=== PATIENT | female | born 2005 | race Caucasian/White ===

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

== ENCOUNTER 2023-08-13 05:17 | Inpatient (IN) | payer MEDICAID ==
[2023-08-13] MEDS ORDERED: Sodium Chloride 0.9% 10 ML Syringe FLUSH PRN (05:25)
[2023-08-13] MEDS ORDERED: Sodium Chloride 0.9% 2.5 ML Syringe FLUSH PRN (05:25)
[2023-08-13] MEDS ORDERED: Sodium Chloride 0.9% 20 ML SDV IV PRN (05:25)
[2023-08-13] MEDS ORDERED: Citric Acid/Sodium Citrate Solution 30 ML Cup PO ONE (05:25)
[2023-08-13] MEDS ORDERED: ceFAZolin 1 GM in Sodium Chloride 0.9% 50 ML IV ONE (05:25)
[2023-08-13] MEDS ORDERED: Oxytocin/0.9 % Sodium Chloride 30 UNIT/500 ML BAG IV SCH (05:30)
[2023-08-13] MEDS: Lactated Ringers 1,000 ML IV SCH ×2 (05:54→06:58)
[2023-08-13 06:39] LABS: HEMATOCRIT 39.2 % (37.0-47.0); HEMOGLOBIN 13.5 g/dL (12.0-16.0); MEAN CORPUSCULAR HEMOGLOBIN 29.5 pg (28.0-32.0); MEAN CORPUSCULAR HGB CONC 34.4 g/dL (32.0-36.0); MEAN CORPUSCULAR VOLUME 85.6 fL (83.0-99.0); MEAN PLATELET VOLUME 11.7 fL (9.4-12.3); PLATELET COUNT,PLT 135 K/uL (150-400); RED BLOOD CELL COUNT 4.58 M/uL (4.10-5.30); WHITE BLOOD CELL COUNT,WBC 10.11 K/uL (3.9-11.3)
[2023-08-13] MEDS ORDERED: Ketorolac 30 MG/ML SDV ONE (06:59)
[2023-08-13] MEDS ORDERED: Oxytocin 10 Units/1 ML SDV ONE (06:59)
[2023-08-13] MEDS ORDERED: Dexamethasone 4 MG/ML 5 ML MDV ONE (06:59)
[2023-08-13] MEDS ORDERED: Ropivacaine 0.5% 5 MG/ML 30 ML SDV ONE (06:59)
[2023-08-13] MEDS ORDERED: dexmedeTOMIDine HCl 200 MCG/2 ML SDV ONE (06:59)
[2023-08-13] MEDS ORDERED: Phenylephrine 1% 10 MG/ML SDV ONE (06:59)
[2023-08-13] MEDS ORDERED: ceFAZolin 1 GM Vial ONE (06:59)
[2023-08-13] MEDS ORDERED: Water For Injection, Sterile 20 ML ONE (06:59)
[2023-08-13] MEDS ORDERED: Morphine PF 10 MG/10 ML SDV ONE (07:01)
[2023-08-13] MEDS ORDERED: fentaNYL 100 MCG/2 ML SDV ONE (07:01)
[2023-08-13] MEDS ORDERED: Ondansetron 4 MG/2 ML SDV ONE (07:08)
[2023-08-13] MEDS ORDERED: Naloxone 0.4 MG/ML SDV IVPUSH PRN (07:43)
[2023-08-13] MEDS ORDERED: Ondansetron 4 MG/2 ML SDV IVPUSH PRN ×2 (07:43→09:11)
[2023-08-13] MEDS ORDERED: Albuterol 0.083% 2.5 MG/3 ML Neb Soln NEB PRN (07:43)
[2023-08-13] MEDS ORDERED: HYDROmorphone 1 MG/ML Syringe IVPUSH PRN (07:43)
[2023-08-13] MEDS ORDERED: fentaNYL 50 MCG/ML SDV IVPUSH PRN (07:43)
[2023-08-13] MEDS ORDERED: Morphine 2 MG/ML SYRINGE IVPUSH PRN (07:43)
[2023-08-13] MEDS ORDERED: ePHEDrine 50 MG/ML SDV IVPUSH PRN (07:43)
[2023-08-13] MEDS ORDERED: droPERidol 5 MG/2 ML SDV IVPUSH PRN (07:43)
[2023-08-13] MEDS ORDERED: Metoclopramide 10 MG/2 ML SDV IVPUSH PRN (07:43)
[2023-08-13] MEDS ORDERED: ePHEDrine 50 MG/ML SDV ONE (08:04)
[2023-08-13] MEDS ORDERED: Propofol 200 MG/20 ML SDV ONE (08:28)
[2023-08-13] MEDS ORDERED: Methylergonovine 0.2 MG/1 ML Amp IM PRN (09:11)
[2023-08-13] MEDS ORDERED: diphenhydrAMINE 50 MG/ML SDV IVPUSH PRN (09:11)
[2023-08-13] MEDS ORDERED: Acetaminophen/oxyCODONE 325-5 MG Tab PO PRN ×2 (09:11)
[2023-08-13] MEDS ORDERED: Bisacodyl 10 MG Supp RECTAL PRN (09:11)
[2023-08-13] MEDS ORDERED: Misoprostol 200 MCG Tab RECTAL PRN (09:11)
[2023-08-13] MEDS ORDERED: Oxytocin 10 Units/1 ML SDV IM PRN (09:11)
[2023-08-13] MEDS ORDERED: Lanolin 100% Cream 7 GM Tube TOP PRN (09:11)
[2023-08-13] MEDS ORDERED: Lactated Ringers 1,000 ML IV SCH (09:15)
[2023-08-13 09:38] LABS: PH,UMBILICAL VENOUS 7.36 (7.25-7.45)
[2023-08-13 09:39] LABS: PH,UMBILICAL ARTERIAL 7.37 (7.18-7.38)
[2023-08-13] MEDS: Acetaminophen 1,000 MG in Premix Bag 1 BAG IV SCH ×3 (11:14→22:45)
[2023-08-13] MEDS: Simethicone 80 MG Tab.Chew PO SCH ×2 (13:25→19:29)
[2023-08-13] MEDS: Ketorolac 30 MG/ML SDV IVPUSH SCH ×2 (14:41→21:18)
[2023-08-13] MEDS ORDERED: Docusate Sodium 100 MG Cap PO SCH (21:00)
[2023-08-14] MEDS: Simethicone 80 MG Tab.Chew PO SCH ×4 (00:18→18:21)
[2023-08-14] MEDS: Ketorolac 30 MG/ML SDV IVPUSH SCH (02:32)
[2023-08-14] MEDS ORDERED: Ketorolac 30 MG/ML SDV IVPUSH SCH ×2 (04:45→09:00)
[2023-08-14] MEDS ORDERED: Bisacodyl 10 MG Supp RECTAL PRN (04:45)
[2023-08-14] MEDS ORDERED: Lactated Ringers 1,000 ML IV SCH (04:45)
[2023-08-14] MEDS ORDERED: Misoprostol 200 MCG Tab RECTAL PRN (04:45)
[2023-08-14] MEDS ORDERED: Lanolin 100% Cream 7 GM Tube TOP PRN (04:45)
[2023-08-14] MEDS ORDERED: Methylergonovine 0.2 MG/1 ML Amp IM PRN (04:45)
[2023-08-14] MEDS ORDERED: diphenhydrAMINE 50 MG/ML SDV IVPUSH PRN (04:45)
[2023-08-14] MEDS ORDERED: Oxytocin 10 Units/1 ML SDV IM PRN (04:45)
[2023-08-14] MEDS ORDERED: Ondansetron 4 MG/2 ML SDV IVPUSH PRN (04:45)
[2023-08-14] MEDS ORDERED: Acetaminophen 1,000 MG in Premix Bag 1 BAG IV SCH (05:00)
[2023-08-14] MEDS: Docusate Sodium 100 MG Cap PO SCH ×2 (08:37→21:16)
[2023-08-14] MEDS ORDERED: Ibuprofen 800 MG Tab PO PRN (09:11)
[2023-08-14] MEDS: Acetaminophen/oxyCODONE 325-5 MG Tab PO PRN ×2 (12:23→18:21)
[2023-08-14 19:01] LABS: HEMATOCRIT 35.7 % (37.0-47.0); HEMOGLOBIN 11.7 g/dL (12.0-16.0)
[2023-08-14] MEDS: Ibuprofen 800 MG Tab PO PRN (21:17)
[2023-08-15] MEDS: Simethicone 80 MG Tab.Chew PO SCH ×2 (00:01→06:30)
[2023-08-15] MEDS: Acetaminophen/oxyCODONE 325-5 MG Tab PO PRN ×2 (00:01→08:06)
[2023-08-15] MEDS: Ibuprofen 800 MG Tab PO PRN (11:37)
== END 2023-08-15 13:15 | disposition home or self-care (01) | DRG 787 ==
LOC: MW.OB 05:17
PROVIDERS: ADMIT Obstetrics & Gynecology; ATTEND Obstetrics & Gynecology
PROC: 10D00Z1 Extraction of Products of Conception, Low, Open Approach (ICD-10-PCS; principal; 2023-08-13 08:00)
DX: O98.52 Other viral diseases complicating childbirth (principal); B00.89 Other herpesviral infection; Z37.0 Single live birth; O70.0 First degree perineal laceration during delivery; Z3A.38 38 weeks gestation of pregnancy
CPT/HCPCS: 01961; 36415; 59025; 64488; 82803; 85014; 85018; 85027; 86592; 86850; 86900; 86901; A9270-GY; J0131; J0690; J1100; J1885; J2274; J2371; J2405; J2590; J2704; J2795; J3010; J3490; J7120

== ENCOUNTER 2024-09-05 09:51 | Emergency (ER) | payer MEDICAID, OTHER | END 2024-09-05 13:39 | disposition home or self-care (01) | LOC: MW.ED 09:51 | DX: R21 Rash and other nonspecific skin eruption (principal); Z91.013 Allergy to seafood; Z88.5 Allergy status to narcotic agent | CPT/HCPCS: 99282 ==

== ENCOUNTER 2025-02-06 11:47 | Emergency (ER) | payer OTHER, MEDICAID ==
[2025-02-06 12:17] LABS: APPEARANCE,URINE CLEAR; GLUCOSE,URINE NEGATIVE (NEGATIVE); OCCULT BLOOD,URINE NEGATIVE (NEGATIVE)
[2025-02-06] MEDS: Pantoprazole 40 MG in Sodium Chloride 0.9% 10 ML IVPUSH ONE (12:20)
[2025-02-06] MEDS: Ondansetron 4 MG/2 ML SDV IVPUSH ONE (12:21)
[2025-02-06 12:29] LABS: MEAN PLATELET VOLUME 10.0 fL (9.4-12.3); NRBC ABSOLUTE 0.00 K/uL (0.00-0.02); NRBC PERCENT 0.0 /100WBC (0.0-0.2); PLATELET COUNT,PLT 167 K/uL (150-400); RED BLOOD CELL COUNT 4.88 M/uL (4.10-5.30); WHITE BLOOD CELL COUNT,WBC 7.31 K/uL (3.9-11.3)
[2025-02-06] MEDS: Ketorolac 30 MG/ML SDV IVPUSH ONE (12:33)
[2025-02-06 12:51] LABS: A/G RATIO 0.9 (0.9-1.6); ALANINE AMINOTRANSFERASE,ALT 250.0 IU/L (14-63); ASPARTATE AMNIOTRANSFERASE,AST 124.0 IU/L (15-37); BILIRUBIN TOTAL 0.5 mg/dL (0.2-1.0); BLOOD UREA NITROGEN,BUN 12.0 mg/dL (7.0-18.0); CARBON DIOXIDE,CO2 29.0 mmol/L (21.0-32.0); CHLORIDE,CL 102.0 mmol/L (98-107); CREATININE 0.8 mg/dL (0.6-1.0); EST CRCL DRUG DOSING (CG) 92.02 mL/min; GLUCOSE RANDOM 79.0 mg/dL (74-106); POTASSIUM,K 4.0 mmol/L (3.5-5.1); PROTEIN TOTAL,TP 8.6 g/dL (6.4-8.2); SODIUM,NA 138.0 mmol/L (136-145)
[2025-02-06 12:53] LABS: ATYPICAL LYMPHOCYTES FEW; BAND ABSOLUTE MAN 0.07; BAND PERCENT MAN 1 %; EOSINOPHILS ABSOLUTE MAN 0.22 K/uL (0.00-0.45); EOSINOPHILS PERCENT MAN 3 % (0-6); ESTIMATED GFR 107.0 mL/min (>60); LYMPHOCYTES ABSOLUTE MAN 4.31 K/uL (1.00-4.80); LYMPHOCYTES PERCENT MAN 59 % (24-44); MONOCYTES ABSOLUTE MAN 0.29 K/uL (0.00-0.80); MONOCYTES PERCENT MAN 4 % (0-8); SEG NEUTROPHILS ABSOLUTE MAN 2.41 K/uL (1.80-7.70); SEG NEUTROPHILS PERCENT MAN 33 % (41-71)
[2025-02-06] MEDS ORDERED: droPERidol 2.5 MG/ML SDV IVPUSH PRN (13:26)
== END 2025-02-06 15:50 | disposition home or self-care (01) ==
LOC: MW.ED 11:47
DX: K76.9 Liver disease, unspecified (principal); R94.5 Abnormal results of liver function studies; Z98.891 History of uterine scar from previous surgery; Z91.013 Allergy to seafood; Z88.5 Allergy status to narcotic agent; Z79.899 Other long term (current) drug therapy
CPT/HCPCS: 36415; 74181; 76705; 80053; 81003; 81025; 83690; 85025; 96361; 96374; 96375; 99284; J1885; J2405; J2470; J7030